=== PATIENT | male | born 1970 | race Caucasian/White ===

== ENCOUNTER 2017-12-21 22:32 | Emergency (ER) | payer SELFPAY ==
[2017-12-21] MEDS ORDERED: NS 1,000 ML IV ONE (22:37)
--- NOTE | 2017-12-21 22:42 | CPEKG ---
Heart Rate: 94 RR Interval: 638 P-R Interval: 180 QRSD Interval: 86 QT Interval: 340 QTC Interval: 426 P Hiram: 74 QRS Hiram: 72 T Wave Hiram: 19 EKG Severity - NORMAL ECG - EKG Impression: SINUS RHYTHM EKG Impression: ST ELEV, PROBABLE NORMAL EARLY REPOL PATTERN Electronically Signed By: Micah Patrick 22-Dec-2017 06:55:31
--- NOTE | 2017-12-21 22:47 | EDPHY ---
H & P Stated Complaint: SVT Time Seen by Provider: 12/21/17 22:37 HPI/ROS: HPI CHIEF COMPLAINT: SVT status post conversion after adenosine by EMS HISTORY OF PRESENT ILLNESS: 47-year-old male, presents to the emergency room after what appears to be SVT. The patient was out hiking and I light jog, which he does regularly, he states he felt his heart rate become very fast in the 180s to 200s. He was wearing a heart rate monitor and states the highest his heart rate went was 206. Patient states that over the past 10 years she has had multiple episodes of tachycardia he has seen Cardiology for this but was unable to ever capture anything. He presents to the emergency room after he called 911 because he had a fast heart rate for close to 3 hr after was hiking. Initially vagal maneuvers were attempted however unsuccessful. Patient was given 12 mg IV adenosine push. This converted him from SVT in the 180s to sinus rhythm in the 90s. He presents emergency room by EMS in no acute distress, denies chest pain or shortness of breath. Does complain of left arm numbness tingling was heart rate was fast. He has had this multiple times. Currently denies any chest pain shortness of breath. Denies vomiting. Denies abdominal pain back pain jaw pain, neck pain, extremity pain Did have some tingling. Past Medical History: Denies significant medical history Past Surgical History: Denies significant surgical history Social History: Denies drugs alcohol tobacco. Family History: Noncontributory ROS REVIEW OF SYSTEMS: A comprehensive 10 point review of systems is otherwise negative aside from elements mentioned in the history of present illness. Exam Constitutional nontoxic. No acute distress, triage nursing summary reviewed, vital signs reviewed, awake/alert. Eyes normal conjunctivae and sclera, EOMI, PERRLA. HENT normal inspection, atraumatic, moist mucus membranes, no epistaxis, neck supple/ no meningismus, no raccoon eyes. Respiratory clear to auscultation bilaterally, normal breath sounds, no respiratory distress, no wheezing. Cardiovascular rate normal, regular rhythm, no murmur, no edema, distal pulses normal. Gastrointestinal soft, non-tender, no rebound, no guarding, normal bowel sounds, no distension, no pulsatile mass. Genitourinary no CVA tenderness. Musculoskeletal no midline vertebral tenderness, full range of motion, no calf swelling, no tenderness of extremities, no meningismus, good pulses, neurovascularly intact. Skin pink, warm, & dry, no rash, skin atraumatic. Neurologic awake, alert and oriented x 3, AAOx3, moves all 4 extremities equally, motor intact, sensory intact, CN II-XII intact, normal cerebellar, normal vision, normal speech. Psychiatric normal mood/affect. Heme/Lymph/Immune no lymphadenopathy. Differential diagnosis includes but is not limited to: SVT, otherwise cardiac arrhythmia, Brugada ACS, atypical chest pain, pneumothorax, pneumonia, pulmonary embolism, aortic dissection, congestive heart failure, tumor, musculoskeletal pain, esophageal pain, GERD, peptic ulcer disease, pancreatitis Medical Decision Making: Plan for this patient IV establishment with IV fluid bolus, check basic electrolytes and blood work. Check troponin, EKG, chest x- ray and re-evaluate. Re-evaluation: EKG interpretation by me on record in [facility] system. Impression time of EKG 2240, sinus rhythm rate of 94, ST elevation consistent with early Re-pole pattern. Labs reviewed. Negative troponin. ED x-ray chest one view: Negative for acute cardiopulmonary disease. EKG reviewed from EMS shows SVT in the 180s. Narrow complex tachycardic. 0238: Patient re-evaluate this time he has been resting comfortably no acute distress. Sleeping. Denies chest pain or shortness of breath. There has been no further evidence of SVT. EKG interpretation by me on record in [facility] system. Impression this is a repeat EKG this EKG was performed while the patient was sleeping and not having any chest pain time of EKG 2:37 a.m., sinus rhythm rate of 77 early Re-moses pattern present. No acute ischemia appreciated. This EKG is unchanged from his previous EKG. 0309: Patient's 2nd troponin 0.06 from 0.02. He has been sleeping. Given that is going up and he had SVT with a heart rate of 180s to 200s, I did recommend he obtains a 3rd troponin to make sure does not go above the lower limit of normal. He has agreed for this. Plan will be a 3rd troponin 4:30 a.m.. If this is normal he can go home for SVT and follow up with Cardiology on outpatient basis. EKG interpretation by me on record in [facility] system. Impression this is a repeat EKG time a repeat EKG 4:37 a.m., sinus rhythm rate of 75 early Phyllis pulp pattern. Unchanged from previous EKG no acute ischemia. 3rd troponin 0.05. Patient has no chest pain is resting comfortably. Recommend he follows up with Cardiology outpatient for SVT. Return precautions discussed with him he understands return if develops chest pain shortness of breath fast heart rate. Source: Patient, EMS - Medical/Surgical History Hx Asthma: No Hx Chronic Respiratory Disease: No Hx Diabetes: No Hx Cardiac Disease: No Hx Renal Disease: No Hx Cirrhosis: No Hx Alcoholism: No Hx HIV/AIDS: No Hx Splenectomy or Spleen Trauma: No Other PMH: R SHOULDER DISLOCATION, tachycardia - Social History Smoking Status: Never smoked Constitutional: Initial Vital Signs Temperature (C) 37.0 C 12/21/17 22:34 Heart Rate 96 12/21/17 22:34 Respiratory Rate 16 12/21/17 22:34 Blood Pressure 131/86 H 12/21/17 22:34 O2 Sat (%) 96 12/21/17 22:34 O2 Delivery Mode Room Air Allergies/Adverse Reactions: No Known Allergies Allergy (Unverified 02/23/15 16:09) Home Medications: Medication Instructions Recorded NK [No Known Home Meds] 12/21/17 Medical Decision Making - Diagnostics Imaging Results: Imaging Impressions Chest X-Ray 12/21/17 22:37 Impression: No acute cardiopulmonary process. - Data Points Laboratory Results: Laboratory Results 12/21/17 22:56 12/21/17 23:14 12/22/17 12/21/17 12/21/17 02:40 23:22 23:14 WBC RBC Hgb Hct MCV MCH MCHC RDW Plt Count MPV Neut % (Auto) Lymph % (Auto) Braxton % (Auto) Eos % (Auto) Baso % (Auto) Nucleat RBC Rel Count Absolute Neuts (auto) Absolute Lymphs (auto) Absolute Monos (auto) Absolute Eos (auto) Absolute Basos (auto) Absolute Nucleated RBC Immature Gran % Immature Gran # PT 14.3 SEC SEC (12.0-15.0) INR 1.09 (0.83-1.16) APTT 30.3 SEC SEC (23.0-38.0) D-Dimer < 0.27 ug/mLFEU ug/mLFEU (0.00-0.50) Sodium Potassium Chloride Carbon Dioxide Anion Gap BUN Creatinine Estimated GFR Glucose Calcium Magnesium Total Bilirubin Conjugated Bilirubin Unconjugated Bilirubin AST ALT Alkaline Phosphatase POC Troponin I 0.06 ng/mL ng/mL (0.00-0.08) NT-Pro-B Natriuret Pep 23 pg/mL pg/mL (0-125) Total Protein Albumin 12/21/17 12/21/17 12/21/17 23:14 23:03 22:56 WBC RBC Hgb Hct MCV MCH MCHC RDW Plt Count MPV Neut % (Auto) Lymph % (Auto) Braxton % (Auto) Eos % (Auto) Baso % (Auto) Nucleat RBC Rel Count Absolute Neuts (auto) Absolute Lymphs (auto) Absolute Monos (auto) Absolute Eos (auto) Absolute Basos (auto) Absolute Nucleated RBC Immature Gran % Immature Gran # PT INR APTT D-Dimer Sodium 138 mEq/L mEq/L REJ (135-145) Potassium 4.0 mEq/L mEq/L TNP (3.3-5.0) Chloride 108 mEq/L mEq/L TNP (97-110) Carbon Dioxide 22 mEq/l mEq/l TNP (22-31) Anion Gap 8 mEq/L mEq/L TNP (8-16) BUN 15 mg/dL mg/dL TNP (7-23) Creatinine 0.9 mg/dL mg/dL TNP (0.7-1.3) Estimated GFR > 60 TNP Glucose 96 mg/dL mg/dL TNP (70-100) Calcium 8.9 mg/dL mg/dL TNP (8.5-10.4) Magnesium TNP Total Bilirubin 0.5 mg/dL mg/dL TNP (0.1-1.4) Conjugated Bilirubin 0.2 mg/dL mg/dL TNP (0.0-0.5) Unconjugated Bilirubin 0.3 mg/dL mg/dL TNP (0.0-1.1) AST 42 IU/L IU/L TNP (17-59) ALT 44 IU/L IU/L TNP (21-72) Alkaline Phosphatase 80 IU/L IU/L TNP (38-126) POC Troponin I 0.02 ng/mL ng/mL (0.00-0.08) NT-Pro-B Natriuret Pep REJ Total Protein 6.1 g/dL L g/dL REJ (6.3-8.2) Albumin 3.6 g/dL g/dL TNP (3.5-5.0) 12/21/17 12/21/17 22:56 22:56 WBC 10.66 10^3/uL H 10^3/uL (3.80-9.50) RBC 6.23 10^6/uL 10^6/uL (4.40-6.38) Hgb 18.0 g/dL H g/dL (13.7-17.5) Hct 53.6 % H % (40.0-51.0) MCV 86.0 fL fL (81.5-99.8) MCH 28.9 pg pg (27.9-34.1) MCHC 33.6 g/dL g/dL (32.4-36.7) RDW 13.9 % % (11.5-15.2) Plt Count 232 10^3/uL 10^3/uL (150-400) MPV 11.4 fL fL (8.7-11.7) Neut % (Auto) 62.6 % % (39.3-74.2) Lymph % (Auto) 27.5 % % (15.0-45.0) Braxton % (Auto) 7.5 % % (4.5-13.0) Eos % (Auto) 1.4 % % (0.6-7.6) Baso % (Auto) 0.7 % % (0.3-1.7) Nucleat RBC Rel Count 0.0 % % (0.0-0.2) Absolute Neuts (auto) 6.68 10^3/uL H 10^3/uL (1.70-6.50) Absolute Lymphs (auto) 2.93 10^3/uL 10^3/uL (1.00-3.00) Absolute Monos (auto) 0.80 10^3/uL 10^3/uL (0.30-0.80) Absolute Eos (auto) 0.15 10^3/uL 10^3/uL (0.03-0.40) Absolute Basos (auto) 0.07 10^3/uL 10^3/uL (0.02-0.10) Absolute Nucleated RBC 0.00 10^3/uL 10^3/uL (0-0.01) Immature Gran % 0.3 % % (0.0-1.1) Immature Gran # 0.03 10^3/uL 10^3/uL (0.00-0.10) PT REJ INR REJ APTT REJ D-Dimer REJ Sodium Potassium Chloride Carbon Dioxide Anion Gap BUN Creatinine Estimated GFR Glucose Calcium Magnesium Total Bilirubin Conjugated Bilirubin Unconjugated Bilirubin AST ALT Alkaline Phosphatase POC Troponin I NT-Pro-B Natriuret Pep Total Protein Albumin Medications Given: Discontinued Medications Sodium Chloride (Ns) 1,000 mls @ 0 mls/hr IV EDNOW ONE; Wide Open PRN Reason: Protocol Stop: 12/21/17 22:38 Last Admin: 12/21/17 22:59 Dose: 1,000 mls Point of Care Test Results: Chemistry 12/22/17 12/21/17 02:40 23:03 POC Troponin I 0.06 ng/mL ng/mL 0.02 ng/mL ng/mL (0.00-0.08) (0.00-0.08) Departure - Departure Disposition: Home, Routine, Self-Care Clinical Impression: SVT (supraventricular tachycardia) Condition: Good Instructions: Supraventricular Tachycardia (ED) Additional Instructions: 1. Follow up with Cardiology. No vigorous activity. Take it easy until you see them 2. Follow up with Cardiology 3. Return to the emergency room if you have worsening pain this includes chest pain, shortness of breath, not feeling well, fast heart rate, or passing out. 4. Stay well-hydrated. Referrals: NONE *PRIMARY CARE P,. [Primary Care Provider] - As per Instructions Celestino An MD [Medical Doctor] - As per Instructions
[2017-12-21 23:06] LABS: PLATELET COUNT 232 10^3/uL (150-400)
[2017-12-21] MEDS ORDERED: LORazepam 1 MG TAB ONE (23:33)
[2017-12-21 23:37] LABS: INR 1.09 (0.83-1.16); PROTIME(PATIENT) 14.3 SEC (12.0-15.0)
--- NOTE | 2017-12-22 02:38 | CPEKG ---
Heart Rate: 77 RR Interval: 779 P-R Interval: 192 QRSD Interval: 86 QT Interval: 360 QTC Interval: 408 P [place]: 71 QRS [place]: 60 T Wave [place]: 23 EKG Severity - NORMAL ECG - EKG Impression: SINUS RHYTHM EKG Impression: ST ELEV, PROBABLE NORMAL EARLY REPOL PATTERN Electronically Signed By: Micah Patrick 22-Dec-2017 06:55:31
--- NOTE | 2017-12-22 04:49 | CPEKG ---
Heart Rate: 75 RR Interval: 800 P-R Interval: 192 QRSD Interval: 86 QT Interval: 364 QTC Interval: 407 P [place]: 68 QRS [place]: 62 T Wave [place]: 26 EKG Severity - NORMAL ECG - EKG Impression: SINUS RHYTHM EKG Impression: ST ELEV, PROBABLE NORMAL EARLY REPOL PATTERN Electronically Signed By: Micah Patrick 22-Dec-2017 06:55:31
[2017-12-22 05:23] VITALS: BP 123/75
== END 2017-12-22 05:26 | disposition home or self-care (01) ==
LOC: EDUNIT#
DX: I47.1 Supraventricular tachycardia (principal)
CPT/HCPCS: 84484-PO

== ENCOUNTER 2018-05-14 22:03 | Emergency (ER) | payer SELFPAY ==
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
[2018-05-14] MEDS ORDERED: PROPOFOL 200 MG/20 ML VIAL IVP ONE (22:21)
[2018-05-15] MEDS ORDERED: IBUPROFEN 800 MG TAB PO ONE ×2 (00:22)
[2018-05-15 00:38] VITALS: BP 130/86
== END 2018-05-15 00:39 | disposition home or self-care (01) ==
PROC: 0RSJXZZ Reposition Right Shoulder Joint, External Approach (ICD-10-PCS; principal; 2018-05-14)
DX: S43.004A Unspecified dislocation of right shoulder joint, initial encounter (principal); Z87.828 Personal history of other (healed) physical injury and trauma
CPT/HCPCS: A4565; J2704